=== PATIENT | male | born 1985 | race Caucasian/White ===

== ENCOUNTER 2024-05-10 02:50 | Emergency (ER) | payer BC, SELFPAY ==
[2024-05-10 02:57] VITALS: BP 144/84
--- NOTE | 2024-05-10 03:56 | ED.GENMED ---
History of Present Illness
General
Chief Complaint: Extremity Pain (non-traumatic)
Source: patient
Exam Limitations: none
Time Seen by Provider: 05/10/24 03:52
Nursing documentation reviewed up to this point in time: agreed with
History of Present Illness
History of Present Illness:
39-year-old [id number] gentleman complains of inability remove his wedding ring from his left ring finger. He admits that he has not taken his ring off since age 24 but he was working in the yard this weekend, his fingers feel somewhat
swollen and his ring is now tight around the base of his left ring digit and causing some pain at the base of his left ring digit. He denies numbness nor tingling.
Prior to my initial evaluation, nursing staff attempted ring removal with K-Y jelly, umbilical tape, etc, unsuccessful.
Gold metallic wedding band was successfully removed with ring cutter.
Patient tolerated procedure well. Reports complete relief of finger pain after ring removed.
No skin abrasion or laceration.
Past History
Past History
ED Past Medical History: None
ED Past Surgical History: None
Social History
Tobacco: Non-smoker
Personal:
Living: with family
Employment: Employed
Family History
Family History: Other (Noncontributory)
Phy Exam
Physical Exam
Physical Exam:
PHYSICAL EXAMINATION:
General: no apparent distress, not acutely ill
Neuro: alert and oriented. no focal neurological deficits
Psychiatric: well kept. interactive and cooperative
Musculoskeletal: [Base of the left ring digit has mild chronic appearing, circumferential, soft tissue compression without erythema. Skin is intact. Distal sensation, strength intact. Rapid capillary refill distally.
Full range of motion without difficulty nor pain.]
Course
Vital Signs
Initial and Last Documented VS:
Initial Vital Signs
Temp Pulse Resp BP Pulse Ox
98.1 F 76 20 144/84 98
05/10/24 02:57 05/10/24 02:57 05/10/24 02:57 05/10/24 02:57 05/10/24 02:57
Last Documented Vital Signs
Temp Pulse Resp BP Pulse Ox
98.1 F 76 20 144/84 98
05/10/24 02:57 05/10/24 02:57 05/10/24 02:57 05/10/24 02:57 05/10/24 02:57
MDM/Problems Addressed
Differential Diagnosis Includes:
Constricting metallic ring base of the left ring digit successfully removed with ring cutter.
Recommend supportive measures, elevation, local ice, Tylenol versus ibuprofen for discomfort.
Recommend wedding ring repair with his local jeweler and follow-up with PCP.
*Pulse Oximetry
Patient hypoxic: no
*Critical Care Note
Total Time (30-74mins, 75-104mins- exclusive of procedures): Not Applicable
ED Attending Note
-
Portions of this chart may have been created with voice recognition software.� Occasional wrong word or��sound alike� substitutions may have occurred due to the inherent limitations of voice recognition software.
Discharge Plan
Departure
Patient Disposition: Home (Routine Discharge)
Date of Disposition: 05/10/24
Time of Disposition: 03:56
Patient with high blood pressure during this ER visit?: No
Condition: Good
Discharge Problem:
encounter for ring removal from finger
Referrals:
NONE,* [Family Provider] - As needed
Interventions
Interventions:
*Risk Screen - Suicide Last Done: 05/10/24 02:57
*General Assessment Last Done: 05/10/24 03:27
*Neglect/Abuse Screening Last Done: 05/10/24 02:57
ED-Skin Assessment Last Done: 05/10/24 03:27
ED-Peripheral Vascular Assessment Last Done: 05/10/24 03:27
ED-Musculoskeletal Assessment Last Done: 05/10/24 03:27
Discharge Date and Time
Print Language: MALAY
[2024-05-10 03:58] VITALS: BP 121/85
== END 2024-05-10 04:01 | disposition home or self-care (01) ==
LOC: EMR 02:50
PROVIDERS: EMERGENCY PHYSICIAN Emergency Medicine
DX: S60.445A External constriction of left ring finger, initial encounter (principal); W49.04XA Ring or other jewelry causing external constriction, initial encounter
CPT/HCPCS: 99282

== ENCOUNTER → 2024-08-04 12:45 | Outpatient (REF) | payer BC, SELFPAY | LOC: HWRAD 12:45 | PROVIDERS: ATTENDING PHYSICIAN Internal Medicine | DX: R74.01 Elevation of levels of liver transaminase levels (principal) | CPT/HCPCS: 76700 ==